=== PATIENT | male | born 1970 | race Caucasian/White ===

== ENCOUNTER 2019-09-15 08:25 | Outpatient (CLI) | payer OTHER ==
[2019-09-15] MEDS ORDERED: FENTANYL PF 100 MCG/2ML ONE (09:01)
[2019-09-15] MEDS ORDERED: MIDAZOLAM 1 MG/ML, 5ML ONE (09:01)
== END 2019-09-15 23:59 | disposition home or self-care (01) ==
LOC: RAD 08:25
PROVIDERS: ATTEND Nurse Practitioner Family
DX: R51 Headache (principal)
CPT/HCPCS: 70551; 99156; 99157; J2250; J3010